=== PATIENT | female | born 1990 ===

== ENCOUNTER 2021-09-01 14:48 | Inpatient (IN) | payer BC ==
[~2021-09-01] VITALS: Ht 162.7 cm; Wt 64.5 kg
[2021-10-11] VITALS (9 sets, daily range): BP systolic 108–141; BP diastolic 57–74; PULSE 61–76; TEMP 98.4–98.6
--- NOTE | 2021-10-11 19:10 | NUR ---
1910-, 39.0, ambulates to LDR4 with spouse. Oriented to room. Instructed to change into gown. Patient denies LOF, VB, decreased movement, or regular contractions. EFM/TOCO explained and applied. Plan of care discussed. 1930-IV started. Blood obtained and sent to lab. IV 500mL bolus started. Assessments completed. Consents explained and signed. Plan of care discussed.
[2021-10-11] MEDS ORDERED: SLOW FE142 MG PO (19:41)
[2021-10-11] MEDS ORDERED: PRENATAL TABLET PO (19:41)
--- NOTE | 2021-10-11 20:00 | NUR ---
1999-Patient ambulating back to bed from bathroom. EFM/TOCO hooked back up. FHR decreased to mid 70s. Patient repositioned in bed. This RN at bedside assessing patient and FHR. 2104-Patient back to bed from ambulating to bathoom. FHR decreased to mid 70s. Patient repositioned to wedged right. This RN at bedside assessing patient and FHR.
[2021-10-11 20:18] LABS: BASO % 0.2 % (0.0-2.0); EOS # 0.2 K/mm3 (0.0-0.7); EOS % 1.9 % (0.0-4.0); GRAN # 9.5 K/mm3 (1.4-6.5); GRAN % 76.3 % (42.2-75.2); HEMATOCRIT 37.8 % (37.0-47.0); LYMPH % 15.7 % (20.0-51.0); MEAN CELL VOLUME 88 fl (80.0-100.0); MEAN CORPUSCULAR HEMOGLOBIN 30 pg (27-31); MEAN CORPUSCULAR HGB CONC 34 g/dl (33.0-37.0); MEAN PLATELET VOLUME 11.1 fl (7.4-10.4); MONO # 0.7 K/mm3 (0.1-0.6); MONO % 5.4 % (1.7-9.3); PLATELET COUNT 203 K/mm3 (130-400); RED BLOOD COUNT 4.32 M/mm3 (4.10-5.30); REDCELL DISTRIBUTION WIDTH-CV 12.9 % (11.5-14.5)
[2021-10-12] VITALS (36 sets, daily range): BP systolic 92–133; BP diastolic 47–74; PULSE 50–92; TEMP 97.9–98.6
--- NOTE | 2021-10-12 00:15 | NUR ---
0015-Difficulty tracing ctx due to maternal position. This RN at bedside adjusting TOCO.
--- NOTE | 2021-10-12 06:40 | NUR ---
NOTED DECELERATION INTO THE 60'S FOLLOWING PT USING THE BEDPAN. RETURNS TO MINIMAL VARIABILITY WITH A LATE DECELERATION. NOTIFIED, SEE PHYS NOTIFICATION. ON HIS WAY TO THE HOSPITAL TO EVALUATE AND ASSESS PT AND POC AT THIS TIME.
--- NOTE | 2021-10-12 07:15 | NUR ---
AT BEDSIDE DISCUSSING POC. DECISION TO CONTINUE WITH A PRIMARY CSECTION DUE TO INTOLERANCE OF LABOR MADE. PT AGREEABLE TO POC. PT PREPPED FOR SURGERY AT THIS TIME AND EDUCATED IN DEPTH ON PROCESS AND PROCEDURE FOR A DELIVERY.
--- NOTE | 2021-10-12 08:08 | NUR ---
0750: PT AMBULATORY TO OR SUITE AND ASSISTED ONTO EDGE OF OR TABLE FOR SPINAL ANESTHESIA PLACEMENT PER FLOYD BARBER. TOLERATED PROCEDURE WELL AND PLACED IN SUPINE POSITION. BAÑUELOS PLACED AND PT PREPPED FOR SURGERY PER PROTOCOL. 0808: PRIMARY DELIVERY OF VIABLE MALE INFANT PER / ASSIST AT THIS TIME. CARE OF ASSUMED BY DAVID OBANDO. INFANT TO WARMER FOR FURTHER STIMULATION AND ASSESSMENTS PER PROTOCOL. 0845: PT TO PACU AT THIS TIME TO BEGIN RECOVERY. VITAL SIGNS STABLE. LR INFUSING. SINUS RHYTHM ON 3 LEAD EKG PLACED BY ANESTHESIA. BAÑUELOS DRAINING CLEAR YELLOW URINE, APPROPRIATE URINE OUTPUT NOTED AND CHARTED. PT FULLY ALERT AND ORIENTED, DENIES NAUSEA. LOCHIA SMALL WITH NO CLOTS AT THIS TIME. ISI CARE PROVIDED FOLLOWING FUNDAL MASSAGES. FUNDUS FIRM AT UMBILICUS. PT IN STABLE CONDITION. 0915: PT TRANSFERRED TO ROOM FOR REMAINDER OF PP CARES IN STABLE CONDITION. LOCHIA REMAINS SMALL WITH NO CLOTS. FUNDUS FIRM AT UMBILICUS. VITAL SIGNS STABLE. WILL CONTINUE WITH ASSESSMENT PER PROTOCOL.
[2021-10-13 04:34] VITALS: BP 102/58; PULSE 63; TEMP 98.1
[2021-10-13 07:00] VITALS: BP 101/81; PULSE 71; TEMP 98.1
[2021-10-13] MEDS ORDERED: IBU800 M1 PO (10:39)
[2021-10-13] MEDS ORDERED: PERCOCET 325 MG1 TA2 PO (10:40)
--- NOTE | 2021-10-13 15:34 | NUR ---
1500: THIS RN ASSUMES CARE OF COUPLET.
[2021-10-13 16:49] VITALS: BP 102/60; PULSE 71; TEMP 98.1
[2021-10-13 18:55] VITALS: BP 106/56; PULSE 67; TEMP 98.4
[2021-10-14 07:35] VITALS: BP 112/60; PULSE 77; TEMP 97.9
== END 2021-10-14 11:15 | disposition home or self-care (01) | DRG 788 ==
LOC: LDR 10-11 15:38 → OB 10-12 09:30 → LDRO 10-18 14:47 → EDSTATUS 10-18 15:36
PROVIDERS: ADMIT Obstetrics & Gynecology
PROC: 3E0P7VZ Introduction of Hormone into Female Reproductive, Via Natural or Artificial Opening (ICD-10-PCS; 2021-10-11)
PROC: 3E033VJ Introduction of Other Hormone into Peripheral Vein, Percutaneous Approach (ICD-10-PCS; 2021-10-11)
PROC: 10D00Z1 Extraction of Products of Conception, Low, Open Approach (ICD-10-PCS; principal; 2021-10-12)
DX: O99.02 Anemia complicating childbirth (principal); D64.9 Anemia, unspecified; O76 Abnormality in fetal heart rate and rhythm complicating labor and delivery; O99.344 Other mental disorders complicating childbirth; F41.9 Anxiety disorder, unspecified; O69.81X0 Labor and delivery complicated by cord around neck, without compression, not applicable or unspecified; O99.824 Streptococcus B carrier state complicating childbirth; O26.893 Other specified pregnancy related conditions, third trimester; Z67.21 Type B blood, Rh negative; Z3A.39 39 weeks gestation of pregnancy; Z37.0 Single live birth; Z23 Encounter for immunization
CPT/HCPCS: J0171; J0690; J1885; J2175; J2370; J2405; J2540; J2590; J7120